=== PATIENT | female | born 1995 | race Caucasian/White ===

== ENCOUNTER 2018-01-17 20:34 | Emergency (ER) | payer BC ==
[~2018-01-17] VITALS: Ht 162.6 cm; Wt 59.0 kg
[2018-01-17 20:40] VITALS: BP_SYST 132
[2018-01-17] MEDS ORDERED: BACITRACIN 1 GM OINT TP ONE (21:01)
[2018-01-17 21:03] VITALS: BP_SYST 135
== END 2018-01-17 21:03 | disposition home or self-care (01) ==
LOC: SED 20:34
DX: S61.211A Laceration without foreign body of left index finger without damage to nail, initial encounter (principal); W26.8XXA Contact with other sharp object(s), not elsewhere classified, initial encounter; Y93.89 Activity, other specified; Y92.89 Other specified places as the place of occurrence of the external cause; Y99.8 Other external cause status
CPT/HCPCS: 99283